=== PATIENT | female | born 1950 | race Caucasian/White ===

== ENCOUNTER 2019-04-10 14:23 | Inpatient (IN) | payer OTHER ==
[~2019-04-10] VITALS: Ht 170.2 cm; Wt 63.5 kg
[2019-04-10] MEDS ORDERED: SYNTHROID50 MCG (14:41)
[2019-04-10] MEDS ORDERED: COZAAR50 MG (14:41)
[2019-04-10] MEDS ORDERED: LORAZEPAM I2 MG/1 ML (14:42)
== END 2019-04-15 16:58 | disposition home or self-care (01) | DRG 482 ==
LOC: ER 14:23 → SURH 04-11 16:08
PROVIDERS: ADMIT Orthopaedic Surgery
PROC: 0QSC04Z Reposition Left Lower Femur with Internal Fixation Device, Open Approach (ICD-10-PCS; principal; 2019-04-12 16:00)
DX: S72.422A Displaced fracture of lateral condyle of left femur, initial encounter for closed fracture (principal); I10 Essential (primary) hypertension; E03.8 Other specified hypothyroidism; F41.1 Generalized anxiety disorder